=== PATIENT | female | born 1990 | race Caucasian/White ===

== ENCOUNTER 2019-01-06 00:21 | Emergency (ER) | payer OTHER ==
--- NOTE | 2019-01-06 03:36 | ER ---
REASON FOR EMERGENCY ROOM VISIT: Wedding ring stuck on finger. HISTORY: This 28-year-old woman comes here with swelling in her left ring finger and her inability to remove her ring. She apparently has had some swelling off and on that has made it more and more difficult to remove her wedding ring from her left ring finger over the past several days. Today, however, she noticed this progressive severe swelling distal to the ring and inability to remove the ring that in spite of her efforts using the string technique, etc. She began to experience some tingling in the tip of her finger, but no real numbness. PAST MEDICAL HISTORY: Noncontributory. REVIEW OF SYSTEMS: Noncontributory. PHYSICAL EXAMINATION: She is a pleasant young woman, in no acute distress. Her left ring finger is very tight. There is a great deal of swelling surrounding her left ring finger where her wedding ring is located. There was only minimal cyanosis distal to this, but there was excellent capillary refill. The swelling was quite severe and I highly doubted any further efforts with a string technique would be fruitful; so after discussing with her, I suggested that we simply cut the ring with a ring cutter recognizing it may do damage to the ring itself, and she and her both understand and agree with this plan. This was accomplished without any difficulty and then the ring had to be pried a bit open in order to get the ring off her finger. She still had some tingling in the tip of her finger, but it started to improve almost immediately after getting the ring removed. There were no complications or difficulties in accomplishing this. The ring was returned to them where they probably will bring it to a jeweler to have it repaired. Some general supportive measures to accelerate resolution of the swelling was discussed with them. They had no further questions. IMPRESSION: Stuck wedding ring due to edema. TI/JEAN /[id number]
== END 2019-01-06 01:10 | disposition home or self-care (01) ==
LOC: LB.ED 00:21
DX: S60.445A External constriction of left ring finger, initial encounter (principal); W49.04XA Ring or other jewelry causing external constriction, initial encounter
CPT/HCPCS: 99282